=== PATIENT | male | born 1990 | race Caucasian/White ===

== ENCOUNTER 2021-03-15 19:04 | Emergency (ER) | payer OTHER ==
[~2021-03-15] VITALS: Ht 177.8 cm; Wt 75.7 kg
== END 2021-03-15 21:25 | disposition home or self-care (01) ==
LOC: ER 19:04
DX: J00 Acute nasopharyngitis [common cold] (principal); Z20.822 Contact with and (suspected) exposure to COVID-19

== ENCOUNTER 2022-11-11 08:10 | Emergency (ER) | payer OTHER ==
[~2022-11-11] VITALS: Ht 177.8 cm; Wt 74.8 kg
== END 2022-11-11 10:20 | disposition home or self-care (01) ==
LOC: ER 08:10
DX: J10.1 Influenza due to other identified influenza virus with other respiratory manifestations (principal); R05.9 Cough, unspecified; R53.81 Other malaise; Z20.822 Contact with and (suspected) exposure to COVID-19

== ENCOUNTER 2023-11-23 20:11 | Emergency (ER) | payer OTHER ==
[~2023-11-23] VITALS: Ht 154.9 cm; Wt 77.1 kg
[2023-11-23] MEDS ORDERED: KETOROLAC TROMETHAMINE 30 MG VIAL IV ONE (20:30)
[2023-11-23] MEDS ORDERED: KETOROLAC TROMETHAMINE 30 MG VIAL ONE (20:40)
[2023-11-23] MEDS ORDERED: CEFTRIAXONE SODIUM 2,000 MG VIAL IV ONE (22:45)
[2023-11-23] MEDS ORDERED: CEFTRIAXONE SODIUM 2,000 MG VIAL ONE (23:32)
[2023-11-24] MEDS ORDERED: 0.9 % SODIUM CHLORIDE 1,000 ML IV SCH
== END 2023-11-24 01:10 | disposition designated cancer center or children's hospital (05) ==
LOC: ER 20:11
DX: S00.11XA Contusion of right eyelid and periocular area, initial encounter (principal); V19.3XXA Pedal cyclist (driver) (passenger) injured in unspecified nontraffic accident, initial encounter; Y93.89 Activity, other specified; Y92.89 Other specified places as the place of occurrence of the external cause